=== PATIENT | male | born 1945 | race Two or more races ===

== ENCOUNTER 2019-03-03 17:13 | Inpatient (IN) | payer MEDICARE, OTHER ==
[~2019-03-03] VITALS: Ht 175.3 cm; Wt 90.5 kg
[2019-03-03] MEDS ORDERED: SODIUM CHLORIDE 0.9% 500 ML IV ONE (18:22)
[2019-03-03] MEDS ORDERED: cefTRIAXone 1GM/50ML D5W 50 ML IV ONE (18:45)
[2019-03-03 19:10] LABS: Basophils # (auto) 0 uL; Basophils % (auto) 0.3 % (0.0-2.0); Eosinophils # (auto) 0.1 uL; Eosinophils % (auto) 1.9 % (0.0-7.0); Hematocrit 27.5 % (41.0-53.0); Lymphocytes # (auto) 0.9 uL; Lymphocytes % (auto) 21.7 % (10.0-50.0); Mean Corpuscular Hemoglobin 28.5 pg (28.0-32.0); Mean Corpuscular Hgb Conc. 32.8 g/dL (32.0-36.0); Mean Corpuscular Volume 87.1 fL (80.0-100.0); Monocytes # (auto) 0.4 uL; Monocytes % (auto) 9.2 % (0.0-12.0); Neutrophils # (auto) 2.8 uL; Neutrophils % (auto) 66.9 % (37.0-80.0); Platelet Count (auto) 68 10^3/uL (140-450); Red Blood Cells 3.15 10^6/uL (4.5-5.90); Red Cell Distribution Width 19.5 % (11.8-14.3); White Blood Cell 4.2 10^3/uL (4.4-10.8)
[2019-03-03 19:23] LABS: INR 1.25 (0.9-1.15); Prothrombin Time 13.2 sec (9.27-12.13)
[2019-03-03 19:34] LABS: Lactic Acid w/Reflex 2.4 mmol/L (0.4-2.0)
[2019-03-03 19:36] LABS: Calcium 8.6 mg/dL (8.5-10.1); Potassium 4.1 mmol/L (3.5-5.1)
[2019-03-03 19:39] LABS: Albumin 2.4 g/dL (3.4-5.0)
[2019-03-03 19:54] LABS: Bilirubin, Total 2.6 mg/dL (0.2-1.0); Total Protein 6.2 g/dL (6.4-8.2)
[2019-03-03 20:11] LABS: Urine Bacteria FEW /hpf (None Seen); Urine Blood Negative /uL (Negative); Urine Mucus FEW (None Seen); Urine Specific Gravity 1.027 (1.001-1.035); Urine WBC 19 /hpf (0 - 3)
[2019-03-04] MEDS ORDERED: SODIUM CHLORIDE 0.9% 1,000 ML IV ONE (01:19)
[2019-03-04] MEDS ORDERED: LEVOFLOXACIN 500MG 100 ML IV ONE (01:30)
[2019-03-04] MEDS ORDERED: LACTULOSE 20Gm/30ML SOLN PO ONE (01:30)
[2019-03-04] MEDS ORDERED: AZITHROMYCIN 500MG/ 250ML 250 ML IV ONE (01:30)
[2019-03-04] MEDS ORDERED: TEMAZEPAM 15 MG CAP PO PRN (02:15)
[2019-03-04] MEDS ORDERED: MORPHINE SULF INJ 2 MG/ML SYRINGE 1ML IV PRN (02:15)
[2019-03-04] MEDS ORDERED: ONDANSETRON HCL 4 MG/2 ML VIAL IV PRN (02:15)
[2019-03-04] MEDS ORDERED: NITROGLYCERIN 0.4 MG SL TAB SL PRN (02:15)
[2019-03-04] MEDS ORDERED: ACETAMINOPHEN 325 MG TAB PO PRN (02:15)
[2019-03-04] MEDS ORDERED: DEXTROSE (50%) 50ML SYRG IV PRN (02:15)
[2019-03-04] MEDS: SODIUM CHLORIDE 0.9% 1,000 ML IV SCH ×2 (02:33→16:00)
[2019-03-04 03:45] VITALS: BP 123/52
--- NOTE | 2019-03-04 03:45 | NUR ---
Telemetry admit from [facility] admitted to Telemetry unit after SBAR received. Patient oriented to Ayden Edmond, primary RN, unit, room, bed, and unit policies regarding patient care and visiting hours. Patient now on continuous telemetry monitoring, tele box # 38 and telemetry reading on arrival to unit is sinus rhythm in the 80s. Patient denies pain at this time. Patient is alert and orient to self unable to answer admission questions when asked. Will refer to medical recorded for information. Patient weighed by bed scale and encouraged to call if they need something. All questions and concerns addressed. Levine to gravity drain urine. Bed in lowest position with bed alarm on. Call light is within reach.
--- NOTE | 2019-03-04 05:03 | NUR ---
Information unable to obtain Patient is unable to answer questions due to aloc. Family not at bedside.
[2019-03-04 05:51] VITALS: BP 123/52
[2019-03-04] MEDS: InsuLIN REG 1unit/0.01ml Soln (100units/ml) SC SCH ×4 (05:57→23:42)
[2019-03-04] MEDS: ACCU-CHEK COMFORT CURVE STRIP VI SCH ×4 (05:58→23:41)
--- NOTE | 2019-03-04 06:10 | NUR ---
Family contacted Patient's daughter,Clau Mcdermott was called this morning by this RN to obtain patient history and baseline. Patient has history of cva, dementia, arthritis, liver ca, cirrhosis. Patient ambulates small distances at home with walker. Patient has hx of elevated ammonia patient is unable to walk does not communicate well. Patient has medication shipped from [facility]. Daughter will bring in medication list later today when she visits.
--- NOTE | 2019-03-04 07:22 | NUR ---
Closing shift note Endorsed care to day nurse. patient is stable at this time. no s/s of distress or sob.
[2019-03-04 08:00] VITALS: BP 109/49
[2019-03-04] MEDS ORDERED: LACTULOSE 20Gm/30ML SOLN PO SCH (10:00)
[2019-03-04] MEDS: LEVOFLOXACIN 500MG 100 ML IV SCH (10:51)
[2019-03-04] MEDS: FAMOTIDINE 20 MG TAB PO SCH ×2 (10:51→21:54)
[2019-03-04] MEDS ORDERED: [UNRECOGNIZED DRUG - CODE] PO (11:13)
[2019-03-04] MEDS ORDERED: ASPI-231 PO (11:13)
[2019-03-04] MEDS ORDERED: LACT10SO3 PO (11:13)
[2019-03-04] MEDS ORDERED: PANT40T PO (11:13)
[2019-03-04] MEDS ORDERED: ZINC100T5 PO (11:13)
[2019-03-04] MEDS ORDERED: FLUO20CA19 PO (11:13)
[2019-03-04] MEDS ORDERED: CIPR-187 PO (11:13)
[2019-03-04] MEDS ORDERED: ATOR40TA52 PO (11:13)
[2019-03-04] MEDS ORDERED: CHOL20007 PO (11:13)
[2019-03-04 12:00] VITALS: BP 115/59
--- NOTE | 2019-03-04 13:27 | NUR ---
WOUND PICTURES TAKEN AND PLACED IN CHART. WILL CONTINUE CARE.
--- NOTE | 2019-03-04 13:30 | NUR ---
WOUND CARE NOTE: Wound care in to see patient per wound care request regarding Low Rick score of 12 and skin integrity issue that are noted present on admission. Bedside nurse took photograph of patient's skin integrity issue upon admission for reference. Patient is 74 years old male with admitting diagnosis of Sepsis. Patient is resting in bed in Rm. 217B. Patient has history of Liver Cirrhosis, Liver CA. Patient is awake and respond to verbal and tactile stimuli. Patient is in no stated pain at this time and appears to be in no pain using Silvestre Grant Faces Pain Scale. He needs assistance in turning and repositioning and his current Rick score is 15. Skin/wound assessment done with the assistance of patient's nurse, ERIK Arita. Noted small area (0.5x0.5cm) intact skin with non-blanchable redness to distal L medial foot and slow to fatimah redness to distal R medial foot consistent with Stage 1 pressure injury. Sacral and back has no open wound,however intact pink scar tissue noted to inner gluteal area. Ly care given and applied Barrier cream to sacral/buttocks as preventative per MD order. Repositioned patient for comfort facing his Rt. side and placed pillow in between legs and feet. Patient tolerated well. Bed in low position, call carl within reach, bed alarm on. RECOMMENDATION:BID/PRN cleaning and application of Barrier cream to sacral/buttocks as preventative per MD order, frequent turning and repositioning schedule as condition permits, redistribute pressure points with pillows,elevate heels on pillows, continue monitoring by wound care while patient is hospitalized. Addendum: 03/04/19 at 1716 by Mai Suh RN Amended: Links added.
--- NOTE | 2019-03-04 14:35 | NUR ---
CALLED PATIENT FAMILY TO VERIFY DNR STATUS NO ANSWER AT THIS TIME. REQUESTED FAMILY TO RETURN CALL. WILL CONTINUE CARE.
--- NOTE | 2019-03-04 15:20 | NUR ---
SPOKE WITH DAUGHTER FERMÍN TO VERIFY DNR STATUS PER FERMÍN, SHE WILL CALL HER BROTHER AND VERIFY. STATES SHE MAY HAVE PAPERWORK WITH PATIENT WISHES, WILL OBTAIN AND BRING TO HOSPITAL. WILL INFORM .
--- NOTE | 2019-03-04 16:00 | NUR ---
Patient full code at this time, per MD Mcadams orders. Informed MD patient family wishes. Per MD please have family come tomorrow at 0800 to speak with him. Will inform family.
[2019-03-04] MEDS: LACTULOSE 20Gm/30ML SOLN PO SCH ×3 (16:20→23:40)
[2019-03-04 17:00] VITALS: BP 134/63
--- NOTE | 2019-03-04 17:10 | NUR ---
Informed patient daughter, Clau of wanting to speak with her tomorrow at 0800. Message left for Clau on phone number provided. Awaiting call back.
--- NOTE | 2019-03-04 19:00 | NUR ---
Opening Shift Note Assumed care of patient, awake and alert. No S/S of distress/SOB or pain. Instructed on POC and to call for assist PRN, will continue to monitor for changes Q1hr and PRN.
--- NOTE | 2019-03-04 19:11 | NUR ---
CLOSING NOTE ENDORSED CAR TO OWNER/OPERATOR RN. BED IN LOW LOCK POSITION, CALL LIGHT IN REACH, BED ALARM ON. SITTER AT BEDSIDE. NO S/S OF DISTRESS. RN AWARE OF PATIENT FAMILY BEING ASKED TO BRING IN PAPERWORK CONCERNING DNR STATUS, PATIENT FULL CODE AT THIS TIME.
[2019-03-05] MEDS: SODIUM CHLORIDE 0.9% 1,000 ML IV SCH (03:25)
[2019-03-05 05:00] VITALS: BP 129/70
[2019-03-05] MEDS: InsuLIN REG 1unit/0.01ml Soln (100units/ml) SC SCH ×2 (06:00→12:00)
[2019-03-05] MEDS: LACTULOSE 20Gm/30ML SOLN PO SCH ×2 (06:00→12:00)
[2019-03-05] MEDS: ACCU-CHEK COMFORT CURVE STRIP VI SCH ×2 (06:00→12:00)
[2019-03-05 06:48] LABS: Basophils # (auto) 0 uL; Basophils % (auto) 0.2 % (0.0-2.0); Eosinophils # (auto) 0.1 uL; Hemoglobin 7.7 g/dL (13.5-17.5); Monocytes # (auto) 0.4 uL; Nucleated Red Blood Cells % 0.1 %
[2019-03-05 06:53] LABS: Eosinophils % (auto) 2.7 % (0.0-7.0); Hematocrit 23.6 % (41.0-53.0); Lymphocytes # (auto) 0.6 uL; Lymphocytes % (auto) 16.7 % (10.0-50.0); Mean Corpuscular Hemoglobin 28.4 pg (28.0-32.0); Mean Corpuscular Hgb Conc. 32.8 g/dL (32.0-36.0); Mean Corpuscular Volume 86.7 fL (80.0-100.0); Monocytes % (auto) 10.1 % (0.0-12.0); Neutrophils # (auto) 2.7 uL; Neutrophils % (auto) 70.3 % (37.0-80.0); Platelet Count (auto) 56 10^3/uL (140-450); Red Blood Cells 2.72 10^6/uL (4.5-5.90); Red Cell Distribution Width 18.4 % (11.8-14.3); White Blood Cell 3.9 10^3/uL (4.4-10.8)
[2019-03-05 07:15] LABS: Albumin 2.3 g/dL (3.4-5.0); Calcium 7.9 mg/dL (8.5-10.1); Potassium 3.8 mmol/L (3.5-5.1)
[2019-03-05 07:20] LABS: BUN/Creatinine Ratio 18.5; Bilirubin, Total 1.8 mg/dL (0.2-1.0); Total Protein 5.5 g/dL (6.4-8.2)
--- NOTE | 2019-03-05 07:20 | NUR ---
Opening Shift Note Assumed care of patient, awake and alert to self and place. No S/S of distress/SOB or pain. Instructed on POC and to call for assist PRN, will continue to monitor for changes Q1hr and PRN.
--- NOTE | 2019-03-05 08:55 | NUR ---
Dr. Castro at bedside discussing POC with patient and family. Patient and family agreed to resume hospice with [facility].
--- NOTE | 2019-03-05 09:12 | NUR ---
Paged Joanne Narvaez to resume [facility]. Awaiting call back.
[2019-03-05] MEDS: LEVOFLOXACIN 500MG 100 ML IV SCH (10:00)
[2019-03-05] MEDS: FAMOTIDINE 20 MG TAB PO SCH (10:00)
--- NOTE | 2019-03-05 10:20 | NUR ---
Wound photos taken. Unable to completely photograph wounds due to patient being uncooperative for photos.
--- NOTE | 2019-03-05 10:40 | NUR ---
Spoke with Dr. Castro. aware of patient's CBC results today. Per MD, continue with discharge.
--- NOTE | 2019-03-05 10:42 | NUR ---
Spoke with [facility]. Patient is resuming hospice with Dr. Sawant. Transportation is being arranged by [facility].
--- NOTE | 2019-03-05 11:05 | NUR ---
Discharge paperwork given to JENELLE Olguin. Patient is confused and oriented to person and place. Patient unable to sign paperwork. POA signed discharge paperwork. POM sheet not placed in patient's chart. Primary RN picked up POM medications to pharmacy and given to patient.
[2019-03-05 11:27] VITALS: BP 135/51
--- NOTE | 2019-03-05 12:35 | NUR ---
Discharge instructions given as ordered. Encourage to follow up with PMD as instructed. All questions and concerns addressed. Patient verbalized understanding. Medication reconciliation form completed and copy given to patient. Home medications held in Pharmacy returned to patient, and needed vaccines given. IV removed with catheter intact, pressure dressing applied, west catheter intact and patent. Telemetry unit returned to [facility]. Patient taken to vehicle via gurney with all personal belongings, accompanied by staff and family members. No distress noted at time of departure.
== END 2019-03-05 12:35 | disposition hospice, home (50) | DRG 871 ==
LOC: ER 17:13 → EDBD 17:13 → TELE 03-04 02:11 → TELE-CENTR 03-04 03:44
PROVIDERS: ADMIT Nurse Practitioner; ATTEND Nurse Practitioner
DX: A41.9 Sepsis, unspecified organism (principal); E43 Unspecified severe protein-calorie malnutrition; G93.41 Metabolic encephalopathy; K72.00 Acute and subacute hepatic failure without coma; N39.0 Urinary tract infection, site not specified; D68.9 Coagulation defect, unspecified; E72.20 Disorder of urea cycle metabolism, unspecified; C22.9 Malignant neoplasm of liver, not specified as primary or secondary; F03.90 Unspecified dementia, unspecified severity, without behavioral disturbance, psychotic disturbance, mood disturbance, and anxiety; E11.9 Type 2 diabetes mellitus without complications; Z68.29 Body mass index [BMI] 29.0-29.9, adult; I10 Essential (primary) hypertension; D63.8 Anemia in other chronic diseases classified elsewhere; D69.6 Thrombocytopenia, unspecified; E66.9 Obesity, unspecified; Z86.73 Personal history of transient ischemic attack (TIA), and cerebral infarction without residual deficits; L89.891 Pressure ulcer of other site, stage 1; J40 Bronchitis, not specified as acute or chronic; Z51.5 Encounter for palliative care; K74.60 Unspecified cirrhosis of liver; Z66 Do not resuscitate; Z85.05 Personal history of malignant neoplasm of liver
CPT/HCPCS: 36415; 70450; 71045; 80053; 81001; 82140; 82962; 83605; 83880; 84484; 85025; 85610; 86850; 86900; 86901; 87040; G0378; J0696; J1956